=== PATIENT | male | born 1935 | race Caucasian/White ===

== ENCOUNTER 2017-10-28 15:48 | Emergency (ER) | payer OTHER ==
[2017-10-28 15:57] VITALS: O2SAT 96
--- NOTE | 2017-10-28 16:21 | EDPHY ---
H & P Stated Complaint: pt with high blood pressure today Time Seen by Provider: 10/28/17 16:09 HPI/ROS: CHIEF COMPLAINT: Asymptomatic hypertension HISTORY OF PRESENT ILLNESS: The patient presents the emergency department with complaints of asymptomatic hypertension. He is noted is several bouts of elevated blood pressure in the 140-150 range over the past 2 days. The patient has no complaints of chest pain or shortness of breath. The patient is on chronic medications for hypertension. The patient was concerned prompting his visit to the emergency department today. The patient has been relatively stable on his verapamil and ARB medication. The patient denies any history of fever, cough or congestion. He denies additional acute complaints. REVIEW OF SYSTEMS: A comprehensive 10 point review of systems is otherwise negative aside from elements mentioned in the history of present illness. Source: Patient Exam Limitations: No limitations - Personal History Current Tetanus/Diphtheria Vaccine: Yes Tetanus Vaccine Date: < 5 years - Medical/Surgical History Hx Asthma: No Hx Chronic Respiratory Disease: No Hx Diabetes: No Hx Cardiac Disease: Yes Hx Renal Disease: No Hx Cirrhosis: No Hx Alcoholism: No Hx HIV/AIDS: No Hx Splenectomy or Spleen Trauma: No Other PMH: CAD, HTN, HYPERLIPIDEMIA, A-FIB, ORTHO SURGERY, SBO. - Social History Smoking Status: Former smoker - Physical Exam Exam: General Appearance: Alert, no distress Eyes: Pupils equal and round no pallor or injection ENT, Mouth: Mucous membranes moist Respiratory: There are no retractions, lungs are clear to auscultation Cardiovascular: Regular rate and rhythm Gastrointestinal: Abdomen is soft and nontender, no masses, bowel sounds normal Neurological: 5/5 strength all 4 extremities, cranial nerves grossly intact Skin: Warm and dry, no rashes Musculoskeletal: Neck is supple nontender Extremities: symmetrical, full range of motion Constitutional: Initial Vital Signs Temperature (C) 36.4 C 10/28/17 15:53 Heart Rate 65 10/28/17 15:53 Respiratory Rate 18 10/28/17 15:53 Blood Pressure 132/80 H 10/28/17 15:53 O2 Sat (%) 96 10/28/17 15:53 O2 Delivery Mode Room Air Allergies/Adverse Reactions: lisinopril Allergy (Severe, Verified 10/28/17 15:52) Other-Enter Comments Home Medications: Medication Instructions Recorded Aspirin [Aspirin 325 mg (*)] 325 mg PO DAILY 01/08/14 Atorvastatin Calcium [Lipitor 80 80 mg PO HS 01/08/14 mg] Dabigatran Etexilate Mesyl 150 mg PO BID 01/08/14 [Pradaxa 150 MG (*)] FEXOFENADINE HCL 180 mg PO DAILY 01/08/14 Irbesartan [Avapro 150 mg (*)] 150 mg PO DAILY 01/08/14 Multivitamins [Tab-A-Belkys] 1 each PO DAILY 02/03/15 Amiodarone HCl 10/28/17 Verapamil 10/28/17 Medical Decision Making ED Course/Re-evaluation: The patient is normotensive in the emergency department. He has no complaints of chest pain or shortness of breath. The patient has a normal neurologic exam. The patient has a follow-up appointment with his primary care provider tomorrow for a blood pressure recheck. At this point time the patient has no indication a hypertensive emergency or urgency. The patient will be discharged from the emergency department in stable condition. Differential Diagnosis: Differential diagnosis considered includes hypertensive emergency, hypertensive urgency, primary hypertension Departure - Departure Disposition: Home, Routine, Self-Care Clinical Impression: Hypertension Condition: Good Instructions: Chronic Hypertension (ED) Additional Instructions: 1. Please follow-up tomorrow with Dr. Fernando for a recheck 2. Return to ED for any BP greater than 220/120, chest pain, severe headache or other concerns. Referrals: Annia Fernando MD [Primary Care Provider] - As per Instructions
[2017-10-28 16:54] VITALS: BP 135/85; PULSE 68; RESP 16; TEMP 97.9
== END 2017-10-28 16:54 | disposition home or self-care (01) ==
DX: I10 Essential (primary) hypertension (principal); I25.10 Atherosclerotic heart disease of native coronary artery without angina pectoris; Z79.82 Long term (current) use of aspirin; Z87.891 Personal history of nicotine dependence

== ENCOUNTER → 2018-08-02 | Outpatient (CLI) | payer OTHER ==
[~2018-08-02] MED LIST: IOPAMIDOL (ISOVUE-300) 100 ML BTL ONE
== END ==
LOC: FIMAGING 12:29
PROVIDERS: ATTEND Internal Medicine
DX: I70.0 Atherosclerosis of aorta (principal); K44.9 Diaphragmatic hernia without obstruction or gangrene
CPT/HCPCS: 74177; Q9967

== ENCOUNTER → 2019-01-18 | Outpatient (CLI) | payer OTHER | LOC: FIMAGING 13:47 | PROVIDERS: ATTEND Internal Medicine | DX: R22.1 Localized swelling, mass and lump, neck (principal) ==